=== PATIENT | female | born 1990 | race African-American/Black ===

== ENCOUNTER 2024-03-20 05:07 | Emergency (ER) | payer MEDICAID ==
[~2024-03-20] VITALS: Ht 162.6 cm; Wt 64.0 kg
[2024-03-20 05:10] VITALS: TEMP 97.8; O2SAT 99
[2024-03-20] MEDS ORDERED: IBUP-2029 MT (05:34)
[2024-03-20 05:47] VITALS: BP 129/79; PULSE 86; RESP 16
[2024-03-20] MEDS: IBUPROFEN 600MG TABLET PO ONE (05:47)
[2024-03-20] MEDS ORDERED: IBUPROFEN 600MG TABLET PO NR (06:00)
== END 2024-03-20 06:55 | disposition home or self-care (01) ==
LOC: ER 05:33
DX: S81.011A Laceration without foreign body, right knee, initial encounter (principal); S86.811A Strain of other muscle(s) and tendon(s) at lower leg level, right leg, initial encounter; D64.9 Anemia, unspecified; Z91.040 Latex allergy status; W18.39XA Other fall on same level, initial encounter; Y93.89 Activity, other specified; Y92.89 Other specified places as the place of occurrence of the external cause; Y99.8 Other external cause status
CPT/HCPCS: 73562; 99283; Z7610